=== PATIENT | female | born 1995 | race Caucasian/White ===

== ENCOUNTER 2020-01-04 01:59 | Emergency (ER) | payer OTHER ==
[~2020-01-04] VITALS: Ht 162.6 cm; Wt 145.2 kg
[~2020-01-04 01:59] MED LIST: AMOX1TAB61 PO; DESO1TAB4 PO; ONDA4TAB10 SL
--- NOTE | 2020-01-04 02:02 | PHYS DOC ---
Past History Past Medical History: No Pertinent History, GERD, Hypothyroid Past Surgical History: No Surgical History Alcohol Use: Occasionally Drug Use: None General Adult HPI: HPI: ".. I ve been having abdomen pain off and on since tuesday... I did see Urgent Care.. they thought it was my gall bladder...."..." I did have some diarrhea earlier.. ".. " a lot of reflux.... but the pain was terrible after a ham and cheese sandwich today... " Patient is a 24 year old female who presents with above hx and complaints right upper quadrant pain. Patient describes pain as severe tonight. Pain is localized to the right upper quadrant. Has rebound pain in the right upper quadrant. No pain on percussion of flank. Patient has had GERD complaints and some diarrhea earlier in the week. Patient denies any intake of bad food. Patient does work at the [employer] and occasionally contact with individuals that have health issues. No history of specific close contact with other individuals. No history of bad food intake. No recent travel outside the [place] area. No history of gallbladder disease with close family members. No history of kidney stones with her close family members. No history of colitis with her or family members. Patient states the ham and cheese sandwich today really exacerbated her pain. Patient did see urgent care and they felt it was biliary colic. Patient presents tonight because of increased pain. No history of endometriosis. Does have cramps with monthly menses. Patient states this pain is not the typical pain of her menses. No history of ovarian cyst. No history of trauma. No history of cough or fever or dyspnea. Review of Systems: Review of Systems: Constitutional: Denies fever or chills Eyes: Denies change in visual acuity HENT: Denies nasal congestion or sore throat Respiratory: Denies cough or shortness of breath Cardiovascular: Denies chest pain or edema GI: Complains of right upper gastric abdominal pain, nausea,. Denies vomiting, bloody stools or diarrhea : Denies dysuria Musculoskeletal: Denies back pain or joint pain Integument: Denies rash Neurologic: Denies headache, focal weakness or sensory changes Endocrine: Denies polyuria or polydipsia Lymphatic: Denies swollen glands Psychiatric: Denies depression or anxiety Heart Score: HEART Score for Chest Pain: HEART Score for Chest Pain Response (Comments) Value History Slighlty/Non-Suspicious 0 ECG Normal 0 Age < 45 0 Risk Factors No Risk Factors 0 Troponin < Normal Limit 0 Total 0 Risk Factors: Risk Factors: DM, Current or recent (<one month) smoker, HTN, HLP, family histo ry of CAD, obesity. Risk Scores: Score 0 - 3: 2.5% MACE over next 6 weeks - Discharge Home Score 4 - 6: 20.3% MACE over next 6 weeks - Admit for Clinical Observation Score 7 - 10: 72.7% MACE over next 6 weeks - Early Invasive Strategies Family History: Family History: Noncontributory to presentation Current Medications: Current Meds: See nursing for home meds Allergies: Allergies: Allergies Coded Allergies Type Severity Reaction Last Updated Verified No Known Drug Allergies 07/25/14 No Physical Exam: PE: Constitutional: inacute distress, non-toxic appearance. [] HENT: Normocephalic, atraumatic, bilateral external ears normal, oropharynx moist, no oral exudates, nose normal. [] Eyes: PERRLA, EOMI, conjunctiva normal, no discharge. [] Neck: Normal range of motion, no tenderness, supple, no stridor. More than 17 inches circumference. Prominent thyroid. Cardiovascular:Heart rate regular rhythm, no murmur [] Lungs & Thorax: Bilateral breath sounds equal at apex with few scattered crackles on right base on auscultation [] Abdomen: Bowel sounds normal, soft, right upper quadrant tenderness, no masses, no pulsatile masses. Obese. (BSA 2.66, BMI54.9) Rebound to right upper quadran t Skin: Warm, dry, no erythema, no rash. [] Back: No tenderness, no CVA tenderness. [] Extremities: No tenderness, no cyanosis, no clubbing, ROM intact, no edema. [] Neurologic: Alert and oriented X 3, normal motor function, normal sensory function, no focal deficits noted. [] No psoas sign. No cording noted. Psychologic: Affect anxious, judgement normal, mood normal. [] EKG: EKG: My interpretation EKG shows a sinus rhythm at 86 bpm. There is no findings of acute STEMI with contralateral changes. [] Radiology/Procedures: Radiology/Procedures: [][address] [address] IMAGING REPORT Signed PATIENT: MILENA EDWARDS ACCOUNT: [id number] : 1995 LOCATION: ER AGE: 24 SEX: F EXAM STATUS: REG ER ORD. PHYSICIAN: TRUMAN DODGE MD REASON: pain PROCEDURE: ACUTE ABDOMEN SERIES EXAM: 2 VIEW ABDOMEN WITH ONE VIEW CHEST. HISTORY: Abdominal pain. COMPARISON: None. FINDINGS: A frontal view of the chest and supine/upright views of the abdomen are obtained. There are no confluent infiltrates. There is no pneumothorax or pleural effusion. The heart is not enlarged. There is no pneumoperitoneum. There are no distended small bowel loops or significant air-fluid levels. There is gas distally. IMPRESSION: 1. No confluent infiltrates. 2. No evidence of obstruction. Electronically signed by: Nasreen Miller MD (01/04/2020 5:38 AM) [facility] DICTATED AND SIGNED BY: EDGARDO MILLER MD DATE: 01/04/20537 CC: TRUMAN DODGE MD; TREVON GIFFORD ~ [address] [address] IMAGING REPORT Signed PATIENT: MILENA EDWARDS ACCOUNT: [id number] : 1995 LOCATION: ER AGE: 24 SEX: F EXAM STATUS: REG ER ORD. PHYSICIAN: TRUMAN DODGE MD REASON: rt. upper quadrant pain, OMNI 300, 75ml & OMNI 240, 30ml PROCEDURE: CT ABD PELV W/ORAL&IV CONTRAST EXAM: CT ABDOMEN/PELVIS WITH CONTRAST. HISTORY: Right upper quadrant pain. TECHNIQUE: Computed tomography of the abdomen and pelvis was performed after the intravenous administration of iodinated contrast. One or more of the following individualized dose reduction techniques were utilized for this examination: 1. Automated exposure control. 2. Adjustment of the mA and/or kV according to patient size. 3. Use of iterative reconstruction technique. COMPARISON: None. FINDINGS: Lung windows through the visualized portions of the bases reveal a 3 mm uncalcified nodule in the left costophrenic ankle, likely benign at this small size. Bone windows reveal no suspicious lesions. The liver, pancreas, adrenal glands, spleen and kidneys are unremarkable. The gallbladder is distended without surrounding inflammatory change. There are no pathologically enlarged lymph nodes. The appendix is not inflamed. There is no small bowel obstruction. IMPRESSION: 1. Distended gallbladder without clear pericholecystic inflammation. Ultrasound could further evaluate if there is persistent concern. Electronically signed by: Nasreen Miller MD (01/04/2020 5:31 AM) [facility] DICTATED AND SIGNED BY: EDGARDO MILLER MD DATE: 01/04/20530 CC: TRUMAN DODGE MD; TREVON GIFFORD ~ Course & Med Decision Making: Course & Med Decision Making Pertinent Labs and Imaging studies reviewed. (See chart for details) Patient currently declining admission or transfer. Reviewed labs and x-rays that are currently available. Patient stay on a clear fluid diet for the next 2 days. No solids no milk products. Must allow bowel rest. Patient follow-up with primary care and obtain out patient PIPIDA scan. Patient is started on Pepcid 20 mg twice a day for GERD. Must follow-up. May take Zofran 8 mg up to 4 times a day for active vomiting. Impression: 1. Abdomen Pain 2. Morbid Obesity 3. Biliary colic [] Dragon Disclaimer: Shay Disclaimer: This electronic medical record was generated, in whole or in part, using a voice recognition dictation system. Departure Departure: Disposition: 01 HOME/RESIDENCE PRIOR TO ADM Condition: STABLE Referrals: ENZO ANGEL DO (PCP) Scripts Famotidine (PEPCID) 20 Mg Tablet 1 TAB PO BID for gerd, #60 TAB 3 Refills Prov: TRUMAN DODGE MD 01/04/20 Hydrocodone/Ibuprofen (HYDROCODONE-IBUPROFEN 7.5-200 ) 1 Each Tablet 1 TAB PO PRN Q6HRS PRN for PAIN, #30 TAB 0 Refills Prov: TRUMAN DODGE MD 01/04/20 Ondansetron Hcl (ZOFRAN) 8 Mg Tablet 8 MG PO QIDPRN PRN for active nausea and vomiting, #30 BOTTLE Prov: TRUMAN DODGE MD 01/04/20 Justification of Admission: Justification of Admission: Justification of Admission Dx: N/A Dragon Disclaimer This chart was dictated in whole or in part using Voice Recognition software in a busy, high-work load, and often noisy Emergency Department environment. It may contain unintended and wholly unrecognized errors or omissions. TRUMAN DODGE MD Jan 04, 2020 02:02
[2020-01-04 02:51] LABS: BASO # 0.1 x10^3/uL (0.0-0.2); BASO % 1 % (0-3); EOS # 0.5 x10^3/uL (0.0-0.7); EOS % 6 % (0-3); HEMATOCRIT 42.9 % (36.0-47.0); HEMOGLOBIN 14.1 g/dL (12.0-15.5); LYMPH # 3.6 x10^3/uL (1.0-4.8); LYMPH % 42 % (24-48); MEAN CORPUSCULAR HEMOGLOBIN 27 pg (25-35); MEAN CORPUSCULAR HGB CONC 33 g/dL (31-37); MEAN CORPUSCULAR VOLUME 83 fL (79-100); MONO # 0.6 x10^3/uL (0.0-1.1); MONO % 7 % (0-9); NEUT # 3.9 x10^3uL (1.8-7.7); NEUT % 45 % (31-73); PLATELET COUNT 382 x10^3/uL (140-400); RED BLOOD COUNT 5.14 x10^6/uL (3.50-5.40); RED CELL DISTRIBUTION WIDTH 14.9 % (11.5-14.5); WHITE BLOOD COUNT 8.7 x10^3/uL (4.0-11.0)
[2020-01-04] MEDS ORDERED: ONDANSETRON PF 4 MG/2 ML VIAL. IVP ONE ×2 (03:00→04:30)
[2020-01-04] MEDS ORDERED: MAGNESIUM HYDROXIDE 2,400 MG/30 ML ORAL.SUSP. PO ONE (03:00)
[2020-01-04] MEDS ORDERED: IV RINGERS SOLUTION,LACTATED 1,000 ML IV SCH (03:00)
[2020-01-04] MEDS ORDERED: SUCRALFATE 1 GM TABLET. PO ONE (03:00)
[2020-01-04] MEDS ORDERED: FAMOTIDINE 20 MG/2 ML VIAL IVP ONE (03:00)
[2020-01-04] MEDS ORDERED: MORPHINE SULFATE 10 MG/ML SYRINGE. SQ ONE (03:00)
[2020-01-04 03:04] LABS: CALCIUM 9.2 mg/dL (8.5-10.1); CREATININE 0.9 mg/dL (0.6-1.0); GFR 76.3; POTASSIUM 3.7 mmol/L (3.5-5.1)
[2020-01-04 03:04] LABS: BARBITURATES NEG (NEG); BENZODIAZEPINES NEG (NEG); CANNABINOIDS NEG (NEG); COCAINE NEG (NEG); METHADONE NEG (NEG); OPIATES NEG (NEG); PHENCYCLIDINE NEG (NEG)
[2020-01-04] MEDS ORDERED: LEVO100T PO (03:05)
[2020-01-04 03:08] LABS: ALBUMIN 3.6 g/dL (3.4-5.0); DIRECT BILIRUBIN 0.1 mg/dL (0.0-0.2); TOTAL BILIRUBIN 0.2 mg/dL (0.2-1.0); TOTAL PROTEIN 6.9 g/dL (6.4-8.2)
[2020-01-04 03:10] LABS: BACTERIA,URINE FEW /HPF (0-FEW); BILIRUBIN,URINE NEG (NEG); CLARITY,URINE CLEAR; COLOR,URINE YELLOW; GLUCOSE,URINE NEG (NEG); NITRITE,URINE NEG (NEG); RBC,URINE 0 /HPF (0-2); SQUAMOUS EPITHELIAL CELL,UR FEW /LPF; UROBILINOGEN,URINE 0.2 mg/dL (0.2 mg/dL); WBC,URINE OCC /HPF (0-4)
[2020-01-04 03:13] LABS: AMPHETAMINE/METHAMPHETAMINE NEG (NEG)
[2020-01-04] MEDS ORDERED: CONTRAST GIVEN MC PRN (03:45)
[2020-01-04] MEDS ORDERED: IOHEXOL 240 MG/ML 50ML VIAL. PO ONE (04:00)
[2020-01-04] MEDS ORDERED: IOHEXOL 300 MG/ML 75 ML VIAL. IV ONE (04:00)
[2020-01-04] MEDS ORDERED: diphenhydrAMINE 50 MG/ML VIAL IVP ONE (05:00)
[2020-01-04] MEDS ORDERED: PROCHLORPERAZINE 10 MG/2 ML VIAL. IV ONE (05:00)
--- NOTE | 2020-01-04 05:34 | RAD ---
EXAM: CT ABDOMEN/PELVIS WITH CONTRAST. HISTORY: Right upper quadrant pain. TECHNIQUE: Computed tomography of the abdomen and pelvis was performed after the intravenous administration of iodinated contrast. One or more of the following individualized dose reduction techniques were utilized for this examination: 1. Automated exposure control. 2. Adjustment of the mA and/or kV according to patient size. 3. Use of iterative reconstruction technique. COMPARISON: None. FINDINGS: Lung windows through the visualized portions of the bases reveal a 3 mm uncalcified nodule in the left costophrenic ankle, likely benign at this small size. Bone windows reveal no suspicious lesions. The liver, pancreas, adrenal glands, spleen and kidneys are unremarkable. The gallbladder is distended without surrounding inflammatory change. There are no pathologically enlarged lymph nodes. The appendix is not inflamed. There is no small bowel obstruction. IMPRESSION: 1. Distended gallbladder without clear pericholecystic inflammation. Ultrasound could further evaluate if there is persistent concern. Electronically signed by: Nasreen Miller MD (01/04/2020 5:31 AM) [facility]
--- NOTE | 2020-01-04 05:40 | RAD ---
EXAM: 2 VIEW ABDOMEN WITH ONE VIEW CHEST. HISTORY: Abdominal pain. COMPARISON: None. FINDINGS: A frontal view of the chest and supine/upright views of the abdomen are obtained. There are no confluent infiltrates. There is no pneumothorax or pleural effusion. The heart is not enlarged. There is no pneumoperitoneum. There are no distended small bowel loops or significant air-fluid levels. There is gas distally. IMPRESSION: 1. No confluent infiltrates. 2. No evidence of obstruction. Electronically signed by: Nasreen Miller MD (01/04/2020 5:38 AM) [facility]
[2020-01-04] MEDS ORDERED: HYDR-1179 PO (05:58)
[2020-01-04] MEDS ORDERED: FAMO-63 PO (05:58)
[2020-01-04] MEDS ORDERED: ONDA8TAB9 PO (05:58)
[2020-01-04 06:00] VITALS: BP 120/64
--- NOTE | 2020-01-05 01:04 | EKG ---
[address] [address] Test Date: 2020-01-04 Test Time: 02:39:15 Pat Name: MILENA EDWARDS Department: Room: Gender: F Content Assistant: : 1995 Requested By: TRUMAN DODGE Order Number: [id number] Reading MD: Measurements Intervals Stokes Rate: 86 P: 25 OR: 134 QRS: 11 QRSD: 78 T: 25 QT: 352 QTc: 424 Interpretive Statements SINUS RHYTHM R-S TRANSITION ZONE IN V LEADS DISPLACED TO THE RIGHT OTHERWISE NORMAL ECG RI6.02 No previous ECG available for comparison
== END 2020-01-04 06:06 | disposition home or self-care (01) ==
LOC: ER 01:59
DX: K80.50 Calculus of bile duct without cholangitis or cholecystitis without obstruction (principal); R19.7 Diarrhea, unspecified; E66.01 Morbid (severe) obesity due to excess calories; K21.9 Gastro-esophageal reflux disease without esophagitis; E03.9 Hypothyroidism, unspecified; Z68.43 Body mass index [BMI] 50.0-59.9, adult
CPT/HCPCS: 36415; 74022; 74177; 80048; 80061; 80076; 80307; 81001; 81025; 82150; 82550; 83690; 84443; 84484; 85025; 85610; 85730; 93005; 96361; 96372; 96374; 96375; 96376; 99285; J0780; J1200; J2270; J2405; J3490; J7120; Q9966; Q9967

== ENCOUNTER → 2020-01-24 | Outpatient (CLI) | payer OTHER ==
[2020-01-04 06:00] VITALS: BP 120/64
[~2020-01-24] MED LIST changes: +FAMO-63 PO; +HYDR-1179 PO; +LEVO100T PO; +ONDA8TAB9 PO
--- NOTE | 2020-01-24 10:24 | RAD ---
Right upper quadrant ultrasound 01/24/2020 INDICATION: Right upper quadrant pain. COMPARISON STUDY: CT of the abdomen and pelvis with contrast January 04, 2020 FINDINGS: Visualized pancreas is unremarkable. Visualized IVC is unremarkable. Liver is normal in appearance measuring 15 cm longitudinally. No focal hepatic lesion is seen. No intrahepatic biliary dilatation is seen. Portal vein is visualized with flow in the normal direction. The gallbladder is normal in appearance without evidence of wall thickening, stones, or sludge. Common bile duct is nondilated at 2 mm. The right kidney somewhat poorly visualized but appears to be grossly normal measuring 10.1 cm in length. IMPRESSION: Normal sonographic appearance of the right upper quadrant. Electronically signed by: Jvai Sue MD (01/24/2020 10:21 AM) [id number]
== END ==
LOC: US 09:43
PROVIDERS: ATTEND Surgery
DX: R10.11 Right upper quadrant pain (principal)
CPT/HCPCS: 76705

== ENCOUNTER 2021-02-21 02:54 | Emergency (ER) | payer BC, OTHER ==
[~2021-02-21] VITALS: Ht 162.6 cm; Wt 127.5 kg
--- NOTE | 2021-02-21 03:04 | PHYS DOC ---
Past History Past Medical History: No Pertinent History, GERD, Hypothyroid Additional Past Medical Histor: obesity Past Surgical History: Tonsillectomy, Other Additional Past Surgical Histo: wisdom teeth removed Alcohol Use: Occasionally Drug Use: None General Adult HPI: HPI: ".. I woke up with really bad pain.... In my upper stomach and a little bit to the right... " Now it is coming clear down into my right lower abdomen and back.."." I did get a gastric bypass about 7 weeks. ago... but I don't think it has anything to do with that surgery.." Patient is a 25 year old female who presents with above hx and complaints severe abdomen pain in the epigastric and right upper quadrant. Patient states pain now seems to be more and right flank and goes down to her lower groin. Patient denies any intake bad food. No recent travel. No sick/ ill contacts. No history immunosuppression. No history of trauma. Patient normally follows with [facility] for care. Patient has past medical history of GERD, hypothyroidism, morbid obesity, biliary colic, and irritable bowel. No history history of renal stones. Patient only follows with [facility] for care. Review of Systems: Review of Systems: Constitutional: Denies fever or chills Eyes: Denies change in visual acuity HENT: Denies nasal congestion or sore throat Respiratory: Denies cough or shortness of breath Cardiovascular: Denies chest pain or edema GI: Complains of severe right upper quadrant epigastric abdominal pain, nausea,. Denies vomiting, bloody stools or diarrhea : Denies dysuria Musculoskeletal: Denies back pain or joint pain Integument: Denies rash Neurologic: Denies headache, focal weakness or sensory changes Endocrine: Denies polyuria or polydipsia Lymphatic: Denies swollen glands Psychiatric: Denies depression or anxiety Family History: Family History: Noncontributory to current presentation Current Medications: Current Meds: See nursing for home meds Allergies: Allergies: Allergies Coded Allergies Type Severity Reaction Last Updated Verified No Known Drug Allergies 01/04/20 No Physical Exam: PE: Constitutional: Morbidly obese, in acute distress, non-toxic appearance. [] HENT: Normocephalic, atraumatic, bilateral external ears normal, oropharynx moist, no oral exudates, nose normal. [] Eyes: PERRLA, EOMI, conjunctiva normal, no discharge. [] Neck: Normal range of motion, no tenderness, supple, no stridor. [] Cardiovascular:Heart rate regular rhythm, no murmur [] Lungs & Thorax: Bilateral breath sounds equal at apex with few scattered wheezes on auscultation [] Abdomen: Bowel sounds decreased soft, right upper quadrant tenderness, no masses, no pulsatile masses. Well-healed abdomen surgery scars Skin: Warm, dry, no erythema, no rash. [] Back: No tenderness, right CVA tenderness. [] Extremities: No tenderness, no cyanosis, no clubbing, ROM intact, no edema. No cellulitis. No cording appreciated Neurologic: Alert and oriented X 3, normal motor function, normal sensory function, no focal deficits noted. [] Psychologic: Affect anxious judgement normal, mood normal. [] EKG: EKG: My interpretation EKG shows sinus rhythm rate of 61 bpm. No findings acute STEMI with contralateral changes. Time of EKG 356 hours [] Radiology/Procedures: Radiology/Procedures: [address] [address] IMAGING REPORT Signed PATIENT: MILENA EDWARDS ACCOUNT: [id number] : 1995 LOCATION: ER AGE: 25 SEX: F EXAM STATUS: REG ER ORD. PHYSICIAN: TRUMAN DODGE MD REASON: Rt. flank and abd. pain, hematuria, recent gastric by pass PROCEDURE: CT ABDOMEN PELVIS WO CONTRAST EXAM: CT ABDOMEN/PELVIS WITHOUT CONTRAST. HISTORY: Right flank pain, hematuria. TECHNIQUE: Computed tomography of the abdomen and pelvis was performed without intravenous contrast. One or more of the following individualized dose reduction techniques were utilized for this examination: 1. Automated exposure control. 2. Adjustment of the mA and/or kV according to patient size. 3. Use of iterative reconstruction technique. COMPARISON: 01/04/2020. FINDINGS: Lung windows through the visualized portions of the bases reveal no abnormality. Bone windows reveal no suspicious lesions. A few right renal calculi measure up to 4 mm. There are no left renal calculi. A tiny right distal ureteral calculus is best seen on the coronal images and measures 2 mm. There is no hydronephrosis. The liver, gallbladder, pancreas, adrenal glands, and spleen are unremarkable. Scattered small lymph nodes within the mesentery are stable. There are no pathologically enlarged lymph nodes. There are changes of gastric bypass. There is no small bowel obstruction. The appendix is not inflamed. IMPRESSION: 1. 2 mm right distal ureteral calculus. 3. Additional small right renal calculi measure up to 4 mm. Electronically signed by: Nasreen Miller MD (02/21/2021 6:29 AM) [facility] DICTATED AND SIGNED BY: EDGARDO MILLER MD DATE: 02/21/21624 CC: TRUMAN DODGE MD; TREVON GIFFORD ~MTH0 0 [[address] [address] IMAGING REPORT Signed PATIENT: MILENA EDWARDS ACCOUNT: [id number] : 1995 LOCATION: ER AGE: 25 SEX: F EXAM STATUS: REG ER ORD. PHYSICIAN: TRUMAN DODGE MD REASON: RT SIDE ABDOMINAL PAIN.HX 6 WKS POST GASTRIC BYPASS PROCEDURE: ACUTE ABDOMEN SERIES EXAM: 2 VIEW ABDOMEN WITH ONE VIEW CHEST. HISTORY: Right abdominal pain. COMPARISON: 01/04/2020. FINDINGS: A frontal view of the chest and supine/upright views of the abdomen are obtained. There are no confluent infiltrates. There is no pneumothorax or pleural effusion. The heart is not enlarged. There is no pneumoperitoneum. There are no distended small bowel loops or significant air-fluid levels. There is gas distally. An anastomotic suture lines are noted along the stomach. IMPRESSION: 1. No confluent infiltrates. 2. No evidence of obstruction. Electronically signed by: Nasreen Miller MD (02/21/2021 6:25 AM) [facility] DICTATED AND SIGNED BY: EDGARDO MILLER MD DATE: 02/21/21622 CC: TRUMAN DODGE MD; TREVON GIFFORD ~MTH0 0 ][address] [address] IMAGING REPORT Signed PATIENT: MILENA EDWARDS ACCOUNT: [id number] : 1995 LOCATION: ER AGE: 25 SEX: F EXAM STATUS: REG ER ORD. PHYSICIAN: TRUMAN DODGE MD REASON: Rt. flank and abd. pain, hematuria, recent gastric by pass PROCEDURE: CT ABDOMEN PELVIS WO CONTRAST EXAM: CT ABDOMEN/PELVIS WITHOUT CONTRAST. HISTORY: Right flank pain, hematuria. TECHNIQUE: Computed tomography of the abdomen and pelvis was performed without intravenous contrast. One or more of the following individualized dose reduction techniques were utilized for this examination: 1. Automated exposure control. 2. Adjustment of the mA and/or kV according to patient size. 3. Use of iterative reconstruction technique. COMPARISON: 01/04/2020. FINDINGS: Lung windows through the visualized portions of the bases reveal no abnormality. Bone windows reveal no suspicious lesions. A few right renal calculi measure up to 4 mm. There are no left renal calculi. A tiny right distal ureteral calculus is best seen on the coronal images and measures 2 mm. There is no hydronephrosis. The liver, gallbladder, pancreas, adrenal glands, and spleen are unremarkable. Scattered small lymph nodes within the mesentery are stable. There are no pathologically enlarged lymph nodes. There are changes of gastric bypass. There is no small bowel obstruction. The appendix is not inflamed. IMPRESSION: 1. 2 mm right distal ureteral calculus. 3. Additional small right renal calculi measure up to 4 mm. Electronically signed by: Nasreen Miller MD (02/21/2021 6:29 AM) [facility] DICTATED AND SIGNED BY: EDGARDO MILLER MD DATE: 02/21/21624 CC: TRUMAN DODGE MD; TREVON GIFFORD ~MTH0 0 Heart Score: C/O Chest Pain: Yes HEART Score for Chest Pain: HEART Score for Chest Pain Response (Comments) Value History Slighlty/Non-Suspicious 0 ECG Normal 0 Age < 45 0 Risk Factors 1 or 2 Risk Factors 1 Troponin < Normal Limit 0 Total 1 Risk Factors: Risk Factors: DM, Current or recent (<one month) smoker, HTN, HLP, family history of CAD, obesity. Risk Scores: Score 0 - 3: 2.5% MACE over next 6 weeks - Discharge Home Score 4 - 6: 20.3% MACE over next 6 weeks - Admit for Clinical Observation Score 7 - 10: 72.7% MACE over next 6 weeks - Early Invasive Strategies Course & Med Decision Making: Course & Med Decision Making Pertinent Labs and Imaging studies reviewed. (See chart for details) Patient recommend stay on clear fluid diet for 24 to 48 hours. Push clear fluids. Must hydrate. Take Flomax daily until kidney stones passed. Follow-up with primary care. Follow-up with your urology. Take Zofran for nausea and vomiting. For marked pain may take Percocet up to 4 times a day. Save stones if noticed when passed. Still recommend follow-up for previous episode of biliary colic Impression: 1. Acute abdomen pain 2. Renal colic 3. Kidney stones 4. Morbid obesity 5. History of biliary colic-has not followed up with her for this complaint since prior visit on 619 [] Dragon Disclaimer: Dragon Disclaimer: This electronic medical record was generated, in whole or in part, using a voice recognition dictation system. Departure Departure: Referrals: TREVON GIFFORD (PCP) Scripts Oxycodone HCl/Acetaminophen (Percocet 5-325 mg Tablet) 1 Each Tablet 1 EACH PO QIDPRN PRN for PAIN, #30 TAB Prov: TRUMAN DODGE MD 02/21/21 Tamsulosin Hcl (FLOMAX) 0.4 Mg Cap.er.24h 0.4 MG PO DAILY for renal colic, #30 CAP.SR Prov: TRUMAN DODGE MD 02/21/21 Ondansetron Hcl (ZOFRAN) 4 Mg Tablet 8 MG PO QIDPRN PRN for NAUSEA/VOMITING, #30 TAB Prov: TRUMAN DODGE MD 02/21/21 Dragon Disclaimer This chart was dictated in whole or in part using Voice Recognition software in a busy, high-work load, and often noisy Emergency Department environment. It may contain unintended and wholly unrecognized errors or omissions. Dragon Disclaimer This chart was dictated in whole or in part using Voice Recognition software in a busy, high-work load, and often noisy Emergency Department environment. It may contain unintended and wholly unrecognized errors or omissions. TRUMAN DODGE MD Feb 21, 2021 03:03
[2021-02-21] MEDS ORDERED: IV RINGERS SOLUTION,LACTATED 1,000 ML IV SCH (03:45)
[2021-02-21] MEDS ORDERED: FAMOTIDINE 20 MG/2 ML VIAL IVP ONE (03:45)
[2021-02-21] MEDS ORDERED: ONDANSETRON PF 4 MG/2 ML VIAL. IVP ONE (03:45)
[2021-02-21] MEDS ORDERED: KETOROLAC 30 MG/ML VIAL. IVP ONE (04:00)
[2021-02-21 04:48] LABS: ANION GAP 13 (6-14); BASO # 0.1 x10^3/uL (0.0-0.2); BASO % 1 % (0-3); BLOOD UREA NITROGEN 7 mg/dL (7-20); CALCIUM 9.3 mg/dL (8.5-10.1); CARBON DIOXIDE 25 mmol/L (21-32); CHLORIDE 103 mmol/L (98-107); CREATININE 0.6 mg/dL (0.6-1.0); EOS # 0.3 x10^3/uL (0.0-0.7); EOS % 4 % (0-3); GFR 120.8; GLUCOSE 105 mg/dL (70-99); HEMATOCRIT 42.6 % (36.0-47.0); HEMOGLOBIN 13.8 g/dL (12.0-15.5); LYMPH # 2.4 x10^3/uL (1.0-4.8); LYMPH % 27 % (24-48); MEAN CORPUSCULAR HEMOGLOBIN 28 pg (25-35); MEAN CORPUSCULAR HGB CONC 33 g/dL (31-37); MEAN CORPUSCULAR VOLUME 86 fL (79-100); MONO # 0.8 x10^3/uL (0.0-1.1); MONO % 9 % (0-9); NEUT # 5.3 x10^3uL (1.8-7.7); NEUT % 60 % (31-73); PLATELET COUNT 350 x10^3/uL (140-400); POTASSIUM 3.9 mmol/L (3.5-5.1); RED BLOOD COUNT 4.97 x10^6/uL (3.50-5.40); RED CELL DISTRIBUTION WIDTH 17.6 % (11.5-14.5); SODIUM 141 mmol/L (136-145)
--- NOTE | 2021-02-21 04:49 | EKG ---
[address] [address] Test Date: 2021-02-21 Test Time: 03:55:14 Pat Name: MILENA EDWARDS Department: Room: Gender: F [employer] Preparer: : 1995 Requested By: TRUMAN DODGE Order Number: [id number] Reading MD: Measurements Intervals Serafina Rate: 61 P: 24 CA: 128 QRS: 13 QRSD: 80 T: 11 QT: 390 QTc: 394 Interpretive Statements SINUS RHYTHM R-S TRANSITION ZONE IN V LEADS DISPLACED TO THE RIGHT OTHERWISE NORMAL ECG RI6.02 No previous ECG available for comparison
[2021-02-21 04:54] LABS: ALBUMIN 3.5 g/dL (3.4-5.0); ALK PHOS 75 U/L (46-116); ALT (SGPT) 28 U/L (14-59); AMYLASE 21 U/L (25-115); AST (SGOT) 34 U/L (15-37); LIPASE 71 U/L (73-393); TOTAL BILIRUBIN 0.5 mg/dL (0.2-1.0); TOTAL PROTEIN 6.7 g/dL (6.4-8.2)
[2021-02-21 04:59] LABS: BARBITURATES NEG (NEG); BENZODIAZEPINES NEG (NEG); CANNABINOIDS NEG (NEG); COCAINE NEG (NEG); METHADONE NEG (NEG); OPIATES NEG (NEG); PHENCYCLIDINE NEG (NEG)
[2021-02-21 05:05] LABS: BILIRUBIN,URINE MOD (NEG); CLARITY,URINE CLOUDY; COLOR,URINE YELLOW; GLUCOSE,URINE NEG (NEG)
[2021-02-21 05:06] LABS: BACTERIA,URINE FEW /HPF (0-FEW); NITRITE,URINE NEG (NEG); RBC,URINE >40 /HPF (0-2); SQUAMOUS EPITHELIAL CELL,UR FEW /LPF; WBC,URINE OCC /HPF (0-4)
[2021-02-21 05:15] LABS: DIRECT BILIRUBIN < 0.1 mg/dL (0.0-0.2)
[2021-02-21 05:16] LABS: AMPHETAMINE/METHAMPHETAMINE NEG (NEG)
[2021-02-21] MEDS ORDERED: TAMSULOSIN 0.4 MG CAP.ER.24H. PO ONE (06:15)
[2021-02-21] MEDS ORDERED: TAMS0.4C97 PO (06:27)
[2021-02-21] MEDS ORDERED: ONDA4TAB7 PO (06:27)
--- NOTE | 2021-02-21 06:28 | RAD ---
EXAM: 2 VIEW ABDOMEN WITH ONE VIEW CHEST. HISTORY: Right abdominal pain. COMPARISON: 01/04/2020. FINDINGS: A frontal view of the chest and supine/upright views of the abdomen are obtained. There are no confluent infiltrates. There is no pneumothorax or pleural effusion. The heart is not en larged. There is no pneumoperitoneum. There are no distended small bowel loops or significant air-fluid level s. There is gas distally. An anastomotic suture lines are noted along the stomach. IMPRESSION: 1. No confluent infiltrates. 2. No evidence of obstruction. Electronically signed by: Nasreen Miller MD (02/21/2021 6:25 AM) [facility]
[2021-02-21] MEDS ORDERED: OXYC-325 PO (06:29)
--- NOTE | 2021-02-21 06:32 | RAD ---
EXAM: CT ABDOMEN/PELVIS WITHOUT CONTRAST. HISTORY: Right flank pain, hematuria. TECHNIQUE: Computed tomography of the abdomen and pelvis was performed without intravenous contrast. One or more of the following individualized dose reduction techniques were utilized for this examinat ion: 1. Automated exposure control. 2. Adjustment of the mA and/or kV according to patient size. 3. Use of iterative reconstruction technique. COMPARISON: 01/04/2020. FINDINGS: Lung windows through the visualized portions of the bases reveal no abnormality. Bone windo ws reveal no suspicious lesions. A few right renal calculi measure up to 4 mm. There are no left renal calculi. A tiny right distal ur eteral calculus is best seen on the coronal images and measures 2 mm. There is no hydronephrosis. The liver, gallbladder, pancreas, adrenal glands, and spleen are unremarkable. Scattered small lymph nodes within the mesentery are stable. There are no pathologically enlarged lymph nodes. There are changes of gastric bypass. There is no small bowel obstruction. The appendix is not inflame d. IMPRESSION: 1. 2 mm right distal ureteral calculus. 3. Additional small right renal calculi measure up to 4 mm. Electronically signed by: Nasreen Miller MD (02/21/2021 6:29 AM) [facility]
[2021-02-21 06:48] VITALS: BP 120/62
== END 2021-02-21 06:48 | disposition home or self-care (01) ==
LOC: ER 02:54
DX: N20.2 Calculus of kidney with calculus of ureter (principal)
CPT/HCPCS: 36415; 74022; 74176; 80048; 80076; 80307; 81001; 81025; 82150; 82550; 83690; 84484; 85025; 93005; 96361; 96374; 96375; 96376; 99285; J1885; J2405; J3010; J3490; J7120